=== PATIENT | female | born 1990 | race African-American/Black ===

== ENCOUNTER 2018-12-19 14:36 | Outpatient (CLI) | payer BC, OTHER ==
--- NOTE | 2018-12-19 16:46 | ULT ---
LEFT BREAST ULTRASOUND: 12/19/18 INDICATION: Palpable abnormalities in the left breast with history of bilateral fibroadenomas. COMPARISON: None. TECHNIQUE: Garces scale and color Doppler images were obtained of the left breast with additional focal evaluation of the right breast. FINDINGS: Within the palpable region in the left breast 5:30 position, 2 cm from the nipple, there is a 2.0 x 1 .5 x 2.4 cm well circumscribed hypoechoic nodule. An additional 9 x 8 x 1.2 cm well circumscribed hypoechoic nodule seen within the left breast 6 o'cl ock position, again within the palpable region of interest. This is 5 cm from the level of the nipple . There is an additional larger well circumscribed hypoechoic nodule seen within the left breast 4 o'cl ock position and near the retroareolar region measuring 7.5 x 3.4 cm. Incidental note is made in the right breast of a similar appearing mass. The patient reports multipl e fibroadenomas in the past being removed from the right and left breast. IMPRESSION: Bilateral solid hypoechoic well circumscribed masses are consistent with fibroadenomas. The largest i s seen within the left breast 4 o'clock position near the retroareolar region measures up to 7.5 cm. Recommend a follow-up ultrasound examination in six months to document stability. The patient is 34 w eeks of . POS: OFF
== END 2018-12-19 14:37 | disposition home or self-care (01) ==
LOC: BICULT 14:36
PROVIDERS: ATTEND Student in an Organized Health Care Education/Training Program
DX: O92.29 Other disorders of breast associated with pregnancy and the puerperium (principal); Z3A.34 34 weeks gestation of pregnancy

== ENCOUNTER 2019-01-22 06:21 | Inpatient (IN) | payer BC, OTHER ==
[2019-01-22] MEDS ORDERED: Diphenoxylate HCl/Atropine Tablet PO PRN (06:40)
[2019-01-22] MEDS ORDERED: Acetaminophen 500 MG TAB PO PRN (06:40)
[2019-01-22] MEDS ORDERED: Methylergonovine 0.2 MG/ML VIAL IM PRN (06:40)
[2019-01-22] MEDS ORDERED: HYDROcodone/Acetaminophen 5/325 mg Tablet PO PRN ×2 (06:40→21:34)
[2019-01-22] MEDS ORDERED: Carboprost 250 MCG/ML AMP IM PRN (06:40)
[2019-01-22] MEDS ORDERED: Ondansetron PF 4 MG/2 ML Vial IVP PRN ×3 (06:40→21:34)
[2019-01-22] MEDS ORDERED: Promethazine HCl 25 MG/ML VIAL IM PRN ×3 (06:40→21:34)
[2019-01-22] MEDS ORDERED: Ibuprofen 800 MG TAB PO PRN (06:40)
[2019-01-22] MEDS ORDERED: Butorphanol Tartrate 1 MG/ML VIAL SLOW IVP PRN (06:40)
[2019-01-22] MEDS ORDERED: Lidocaine 1% (PF) 30 ML VIAL SC PRN (06:40)
[2019-01-22] MEDS ORDERED: Misoprostol 200 MCG TAB PR PRN (06:40)
[2019-01-22] MEDS ORDERED: NS w/ Oxytocin 10 units 500 ML IV SCH (06:45)
[2019-01-22] MEDS ORDERED: Penicillin G Potassium 5 MILL.UNITS in Sodium Chloride 0.9% 100 ML IVPB SCH (07:00)
[2019-01-22 07:08] VITALS: BMI 39.2
[2019-01-22 07:53] LABS: Hemoglobin 10.6 g/dL (12.0-16.0); Mean Corpuscular Hemoglobin 29.3 pg (27.0-31.0); Mean Corpuscular Volume 86.3 fL (78.0-98.0); Mean Platelet Volume 7.9 fL (7.4-10.4); Platelet Count 212 thou/uL (130-400); RBC Distribution Width 13.2 % (11.5-14.5)
[2019-01-22] MEDS ORDERED: NS w/ Oxytocin 10 units 500 ML ONE (07:54)
--- NOTE | 2019-01-22 08:09 | PDOC.LDHP ---
Labor and Delivery H&P Chief complaint: scheduled induction HPI: 28yo A2 at 39w2d by LMP here for elective IOL. No complaints. Current gestational age (weeks): 39 Due date: 01/27/19 Dating criteria: last menstrual period Grav: 5 Para: 2 Current complications: none Abnormal US findings: No Past Medical History: fibroadenomas bilateral breast, asthma Current medications: pre-shahram vitamins, iron Previous surgical history: other (breast biopsy) Allergies/Adverse Reactions: Allergies Allergy/AdvReac Type Severity Reaction Status Date / Time No Known Allergies Allergy Verified 04/29/13 18:56 Social history: none - Physical Exam Vital signs reviewed and normal: yes General: NAD Heart: RRR Lungs: CTAB Abdomen: gravid Extremeties: no edema FHT: category 1 Amery contractions every: 4min - OB Labs Blood type: A RH: positive Antibody Screen: negative HIV: negative RPR: negative HEPSAg: negative 1 hour GCT: negative GBS: positive Urine drug screen: negative Rubella: immune - Assessment L&D Assessment: elective induction at term - Plan Plan: admit to L&D, labor augmentation if indicated, GBS antibiotic prophylaxis , informed consent obtained, anesthesia consult for pain management
[2019-01-22] MEDS: Lactated Ringer's 1,000 ML IV SCH ×3 (08:20→14:55)
[2019-01-22 08:32] LABS: Hep B Surf Ag Non-Reactive S/CO (NonReactive); Syphilis Antibody Nonreactive (Nonreactive); Syphilis Antibody Index 0.04 S/CO (<1.00 Non-Reactive)
[2019-01-22] MEDS: Penicillin G 2.5 MILL.units 2.5 MILL.UNITS in Premix Bag 1 BAG IVPB SCH ×2 (12:02→16:06)
[2019-01-22] MEDS ORDERED: Fentanyl 4 mcg/Bup 0.1% Cadd 100 ML ONE (13:57)
[2019-01-22] MEDS ORDERED: Naloxone HCl 0.4 mg/ml Vial IVP PRN ×2 (14:23)
[2019-01-22] MEDS ORDERED: ePHEDrine/0.9% NaCl/PF SYRINGE 50 mg/10 ml SLOW IVP PRN (14:23)
[2019-01-22] MEDS ORDERED: Acetaminophen 325 MG TAB PO PRN (14:23)
[2019-01-22] MEDS ORDERED: diphenhydrAMINE 50 MG/ML VIAL IVP PRN (14:23)
[2019-01-22] MEDS ORDERED: Lactated Ringer's 500 ML IV PRN (14:23)
[2019-01-22] MEDS ORDERED: Fentanyl 4 mcg/Bupivacaine 0.1% Cassette 100 ML EPIDURAL SCH (14:30)
[2019-01-22] MEDS ORDERED: Communication Order-Pharmacy FS SCH (14:30)
--- NOTE | 2019-01-22 17:51 | PDOC.OPDEL ---
OB Operative/Delivery Note Delivery Dr/Surgeon: Elda Assist: n/a Pre-Delivery Diagnosis: elective induction Procedure/Post Delivery Dx: spontaneous vaginal delivery Weeks gestation: 39 Anesthesia: epidural - Findings A Sex: female - 1 min: 9 - 5 min: 9 - Additional Findings/Plan Placenta delivered: spontaneous Repaired Obstetrical Laceration: none Estimated blood loss: 200cc Post delivery plan: routine recovery
[2019-01-22] MEDS ORDERED: Bupivacaine/Epinephrine 0.25% 30 ML VIAL ONE (21:00)
[2019-01-22] MEDS ORDERED: Milk Of Magnesia 30 ML UDCUP PO PRN (21:34)
[2019-01-22] MEDS ORDERED: Preparation H Ointment 28 GM TUBE PR PRN (21:34)
[2019-01-22] MEDS ORDERED: diphenhydrAMINE 25 MG CAP PO PRN (21:34)
[2019-01-22] MEDS ORDERED: NS / Oxytocin 40 units/1000ml 1,000 ML IV SCH (21:34)
[2019-01-22] MEDS ORDERED: Lanolin Ointment 7 GM TUBE TOP PRN (21:34)
[2019-01-22] MEDS ORDERED: Bisacodyl 10 MG SUPP PR PRN (21:34)
[2019-01-22] MEDS ORDERED: Benzocaine-Menthol 82.5 ML CAN TOP PRN (21:34)
[2019-01-23] MEDS: HYDROcodone/Acetaminophen 5/325 mg Tablet PO PRN ×2 (01:53→16:59)
[2019-01-23] MEDS: Ibuprofen 800 MG TAB PO SCH ×4 (04:08→21:37)
[2019-01-23 06:50] LABS: Hemoglobin 9.9 g/dL (12.0-16.0); Mean Corpuscular HGB CONC 32.7 g/dL (32.0-36.0); Mean Corpuscular Hemoglobin 28.5 pg (27.0-31.0); Mean Platelet Volume 7.6 fL (7.4-10.4); Platelet Count 175 thou/uL (130-400); RBC Distribution Width 12.9 % (11.5-14.5); Red Blood Cell (RBC) Count 3.48 mill/uL (4.20-5.40); White Blood Cell (WBC) Count 10.2 thou/uL (4.8-10.8)
[2019-01-23] MEDS: Docusate Calcium (SURFAK) 240 MG CAP PO SCH ×3 (07:47→21:38)
[2019-01-23] MEDS: Penicillin G 2.5 MILL.units 2.5 MILL.UNITS in Premix Bag 1 BAG IVPB SCH (07:49)
[2019-01-23] MEDS ORDERED: Prenatal Vitamin 1 TAB PO SCH (09:00)
[2019-01-23] MEDS ORDERED: Adacel (T-DAP) 0.5 ML SYRINGE IM ONE (09:00)
[2019-01-23] MEDS: Ferrous Sulfate 325 MG TAB PO SCH ×2 (09:16→16:59)
--- NOTE | 2019-01-23 17:43 | PDOC.PP ---
Post Progress Note Post Day #: 1 PO intake tolerated: yes Flatus: yes Ambulation: yes Vital Signs (12 hours) Temp Pulse Resp BP Pulse Ox 01/23/19 12:07 98.0 F 77 16 123/58 L 01/23/19 08:00 98.1 F 82 16 113/62 96 Weight Weight 258 lb - Physical Examination General: NAD Respiratory: non-labored breathing Abdominal: no distention, appropriately TTP Fundus firm & at: umb-2 Skin: no rash Neurological: no gross focal deficits Psychiatric: normal affect Result Diagrams: 01/23/19 06:28 Additional Labs: Post Labs Blood Type A POSITIVE 01/22/19 07:43 Hep Bs Antigen Non-Reactive S/CO (NonReactive) 01/22/19 07:43 - Assessment/Plan PPD1 s/p TSVD VSSAF Doing well lochia < menses Bottlefeeding Rh pos RImm DC home FU 6w
[2019-01-23 19:50] VITALS: BP 120/72; TEMP 97.9
== END 2019-01-23 22:25 | disposition home or self-care (01) | DRG 807 ==
LOC: L&D 06:21 → 3SE 21:23 → EDSTATUS 01-27 14:42
PROVIDERS: ADMIT Student in an Organized Health Care Education/Training Program; ATTEND Student in an Organized Health Care Education/Training Program
PROC: 10E0XZZ Delivery of Products of Conception, External Approach (ICD-10-PCS; principal; 2019-01-22)
DX: O80 Encounter for full-term uncomplicated delivery (principal); Z37.0 Single live birth; Z3A.39 39 weeks gestation of pregnancy
CPT/HCPCS: 36415; 51702; 85027; 86780; 86850; 86900; 86901; 87340; J2540; J2590; J3490; J7050

== ENCOUNTER 2020-04-29 11:22 | Emergency (ER) | payer BC, OTHER ==
--- NOTE | 2020-04-29 12:17 | CT ---
CT BRAIN WITHOUT CONTRAST: HISTORY: Seizure COMPARISON: 05/07/2014 FINDINGS: No evidence of acute infarct, hemorrhage, midline shift or abnormal extra-axial fluid collections is seen. The ventricular size is appropriate and the basilar cisterns are patent. The bony calvarium is intact. The visualized paranasal sinuses and mastoid air cells are well aerated. IMPRESSION: No CT evidence of acute intracranial process.
[2020-04-29 12:42] LABS: Bilirubin Negative (Negative); Blood, Urine Trace (Negative); Clarity Clear (Clear); Glucose, Urine (Dipstick) Negative (Negative); Ketone, Urine Negative (Negative); Leukocyte Negative (Negative); Nitrite Negative (Negative); Protein, Urine (Dipstick) Negative (Neg-Trace); Specific Gravity, Urine 1.025 (1.005-1.030); Urobilinogen 0.2 mg/dL (Less than 2)
[2020-04-29 12:43] LABS: Other Microscopic Description Less than 2 mL rec'd; Pregnancy Test - Urine (BHCG) Negative (Negative); Pregu Control Background? CLEAR/WHITE (CLR/WHITE); Pregu Control Bar Appear? YES (CONTROL BAR); Specific Gravity 1.025 (1.002-1.036)
[2020-04-29 12:45] LABS: Bacteria/HPF 1+ HPF (None Seen); RBC/HPF 0-3 HPF (0-3); Squamous Epithelial 0-3 HPF (0-3); WBC/HPF 0-3 HPF (0-3)
[2020-04-29 12:49] LABS: Amphetamine Not Detected (NotDetected); Barbiturates Screen Not Detected (NotDetected); Benzodiazepine Screen Not Detected (NotDetected); Cocaine Metabolite Screen Not Detected (NotDetected); Medtox Control Line Valid? VALID (VALID); Medtox Reader # READER 1; Methadone Not Detected (NotDetected); Methamphetamine Not Detected (NotDetected); Opiate Screen Not Detected (NotDetected); Oxycodone Screen Not Detected (NotDetected); Phencyclidine (PCP) Not Detected (NotDetected); THC/Cannabinoid Screen Not Detected (NotDetected); Tricyclic Screen Not Detected (NotDetected)
[2020-04-29 13:02] LABS: #Basophils 0.1 thou/uL (0.0-0.2); #Eosinphils 0.1 thou/uL (0.0-0.7); #Lymphocytes 1.2 thou/uL (1.20-3.40); #Monocytes 0.3 thou/uL (0.11-0.59); #Neutrophils 4.3 thou/uL (1.40-6.50); %Monocytes 5.7 % (0.0-10.0); %Neutrophils 72.3 % (42.0-75.0); Hemoglobin 14.8 g/dL (12.0-16.0); Mean Corpuscular Hemoglobin 30.8 pg (27.0-31.0); Mean Corpuscular Volume 90.8 fL (78.0-98.0); Mean Platelet Volume 8.1 fL (7.4-10.4); Platelet Count 206 thou/uL (130-400); RBC Distribution Width 12.2 % (11.5-14.5); Red Blood Cell (RBC) Count 4.79 mill/uL (4.20-5.40); White Blood Cell (WBC) Count 5.9 thou/uL (4.8-10.8)
[2020-04-29 13:19] LABS: ALT (SGPT) 31 U/L (8-55); AST (SGOT) 30 U/L (5-34); Albumin 4.5 g/dL (3.5-5.0); Alkaline Phosphatase 108 U/L (40-110); Anion Gap 15 mmol/L (10-20); BUN (Urea Nitrogen) 9 mg/dL (7.0-18.7); Bilirubin, Total 0.4 mg/dL (0.2-1.2); Calc. Creatinine Clearance 0 mL/min (70-130); Calcium 9.4 mg/dL (7.8-10.44); Carbon Dioxide 21 mmol/L (22-29); Chloride 105 mmol/L (98-107); Estimated GFR-MDRD 76; Globulin 3.8 g/dL (2.4-3.5); Glucose 90 mg/dL (70-105); Magnesium 2.2 mg/dL (1.6-2.6); Potassium 3.9 mmol/L (3.5-5.1); Protein, Total 8.3 g/dL (6.0-8.3); Sodium 137 mmol/L (136-145)
[2020-04-29 13:21] LABS: Acetaminophen Less than 6.0 mcg/mL (10.0-30.0); Alcohol Less than 10 mg/dL (Less than 10); CK (CPK) 315 U/L (29-168); Salicylate Less than 8.0 mg/dL (15.0-30.0)
== END 2020-04-29 16:04 | disposition home or self-care (01) ==
LOC: ERS 11:22
DX: R56.9 Unspecified convulsions (principal); J45.909 Unspecified asthma, uncomplicated
CPT/HCPCS: 36415; 70450; 80053; 80306; 80307; 81003; 81025; 82550; 83735; 84146; 84484; 85025; 93005; 96365; 99406; J1953

== ENCOUNTER 2020-05-23 12:21 | Outpatient (CLI) | payer BC ==
--- NOTE | 2020-05-23 16:17 | EEG ---
DATE OF SERVICE: 05/23/2020 DESCRIPTION OF THE RECORD: The waking background is a medium amplitude 10 hertz alpha frequency. The patient became drowsy, but no sleep was seen. Hyperventilation and photic stimulation were all unremarkable. No epileptiform features were seen. IMPRESSION: This is a normal awake and drowsy EEG. Job ID: [id number]
== END 2020-05-23 12:22 | disposition home or self-care (01) ==
LOC: EEG 12:21
PROVIDERS: ATTEND Nurse Practitioner Acute Care
DX: R56.9 Unspecified convulsions (principal)
CPT/HCPCS: 95816